=== PATIENT | male | born 1980 | race Two or more races ===

== ENCOUNTER 2018-01-20 20:04 | Emergency (ER) | payer SELFPAY ==
[~2018-01-20] VITALS: Ht 188 cm; Wt 79.4 kg
--- NOTE | 2018-01-20 20:26 | NUR ---
PT PRESENTS TO ER STATING HE HAS A HX OF HEMORRHOIDS, AND STATES HE IS HAVING A "FLARE UP" TODAY. PT IS A&OX4. NO ACUTE DISTRESS NOTED.
--- NOTE | 2018-01-20 20:45 | NUR ---
PATIENT DID NOT WANT TO BE SEEN BY ERMD. STATING WITH GO TO URGENT CARE IN THE AM DUE TO INSURANCE ISSUE. PATIENT WALKED OUT OF ER WITH NO DISTRESS NOTED
== END 2018-01-20 21:05 | disposition left against medical advice (07) ==
LOC: ER 20:14
DX: Z53.21 Procedure and treatment not carried out due to patient leaving prior to being seen by health care provider (principal)
CPT/HCPCS: A4663